=== PATIENT | female | born 1955 | race Two or more races ===

== ENCOUNTER → 2018-01-01 | Outpatient (CLI) | payer OTHER ==
[~2018-01-01] VITALS: Ht 154.9 cm; Wt 61.0 kg
[~2018-01-01] MED LIST: AMOX1TAB16 PO; ATOR40TA28 PO; COLLAGENASE 250 UNITS/GM 30 GM OINTMENT TP ONE; FOLI1 PO; IBUP-1506 PO; LEVO50 PO; LIDOCAINE HCL 2% 5 ML JELLY TP ONE; METF500T4 PO; METH2.5T6 PO; PRED1 PO
[2018-01-01 10:08] VITALS: BP 140/65
== END | disposition home or self-care (01) ==
LOC: HBOWC 09:20
PROVIDERS: ATTEND Podiatrist
DX: L97.521 Non-pressure chronic ulcer of other part of left foot limited to breakdown of skin (principal); M06.9 Rheumatoid arthritis, unspecified
CPT/HCPCS: 11042; G0463; Z7610

== ENCOUNTER → 2018-01-08 | Outpatient (CLI) | payer OTHER ==
[~2018-01-08] MED LIST changes: -COLLAGENASE 250 UNITS/GM 30 GM OINTMENT TP ONE
[2018-01-08 09:44] VITALS: BP 157/91
== END | disposition home or self-care (01) ==
LOC: HBOWC 09:22
PROVIDERS: ATTEND Podiatrist
DX: L97.521 Non-pressure chronic ulcer of other part of left foot limited to breakdown of skin (principal); M06.9 Rheumatoid arthritis, unspecified
CPT/HCPCS: 97597

== ENCOUNTER → 2018-01-15 | Outpatient (CLI) | payer OTHER ==
[~2018-01-15] MED LIST changes: -LIDOCAINE HCL 2% 5 ML JELLY TP ONE
[2018-01-15 10:33] VITALS: BP 137/71
== END | disposition home or self-care (01) ==
LOC: HBOWC 09:59
PROVIDERS: ATTEND Podiatrist
DX: L97.521 Non-pressure chronic ulcer of other part of left foot limited to breakdown of skin (principal); M06.9 Rheumatoid arthritis, unspecified
CPT/HCPCS: 97597

== ENCOUNTER → 2018-01-29 | Outpatient (CLI) | payer OTHER ==
[~2018-01-29] MED LIST changes: +LIDOCAINE HCL 2% 5 ML JELLY TP ONE
[2018-01-29 10:08] VITALS: BP 128/69
== END | disposition home or self-care (01) ==
LOC: HBOWC 09:58
PROVIDERS: ATTEND Podiatrist
DX: L97.521 Non-pressure chronic ulcer of other part of left foot limited to breakdown of skin (principal); M06.9 Rheumatoid arthritis, unspecified
CPT/HCPCS: 11042